=== PATIENT | male | born 1990 | race Two or more races ===

== ENCOUNTER 2025-04-24 11:53 | Emergency (ER) | payer OTHER, SELFPAY ==
[~2025-04-24] VITALS: Ht 180.3 cm; Wt 91.6 kg
--- NOTE | 2025-04-24 14:46 | ED.PDOC ---
HPI Comments 34 y.o male presents to the ED for an evaluation of a laceration to the right thumb. Patient reports about 2 hours ago, was using an electric saw which bounced back to his thumb. Patient presents with thumb wrapped and bleeding controlled, however upon unwrapping, bleeding continued. Laceration is severed to the bone. Reports loss of sensation to the thumb. He denies any medical history or known allergies. Chief Complaint: Laceration Time Seen by MD: 14:27 Reviewed Notes: Nurses Notes, Medications, Allergies Allergies: Coded Allergies: NO KNOWN ALLERGIES (Unverified , 04/24/25) Information Source: Patient Mode of Arrival: Ambulatory Severity: Severe Severity of Laceration: Uncontrolled Bleeding Complexity: Complex Timing: Hours Laceration Location: Digit #1 Mechanism: Other Laceration Length (cm): 4 Skin Type: Avulsion, Jagged, Irregular Depth of Injury: Muscle, Bone, Tendon Tendon Injury: 100% Capillary Refill: < 3 seconds Tender: Severe Discharge: Bloody Associated Signs and Symptoms: Weakness, Numbness, Loss of Function, Bleeding Past Medical History PAST MEDICAL HISTORY: Denies Surgical History: Denies all surgeries Family History Family History: Reviewed,noncontributory to illness Social History Smoker: Non-Smoker Alcohol: Denies ETOH Use Drugs: Denies Drug Use Lives In: Home Constitutional: denies: chills, diaphoresis, fatigue, fever, malaise, sweats, weakness, others EENTM: denies: blurred vision, double vision, ear bleeding, ear discharge, ear drainage, ear pain, ear ringing, eye pain, eye redness, hearing loss, mouth pain, mouth swelling, nasal discharge, nose bleeding, nose congestion, nose pain, photophobia, tearing, throat pain, throat swelling, voice changes, others Respiratory: denies: cough, hemoptysis, orthopnea, SOB at rest, shortness of breath, SOB with excertion, stridor, wheezing, others Cardiovascular: denies: chest pain, dizzy spells, diaphoresis, Dyspnea on exertion, edema, irregular heart beat, left arm pain, lightheadedness, palpitations, PND, syncope, others Gastrointestinal: denies: abdomen distended, abdominal pain, blood streaked bowels, constipated, diarrhea, dysphagia, difficulty swallowing, hematemesis, melena, nausea, poor appetite, poor fluid intake, rectal bleeding, rectal pain, vomiting, others Genitourinary: denies: burning, dysuria, flank pain, frequency, hematuria, incontinence, penile discharge, penile sore, pain, testicle pain, testicle swelling, urgency, others Neurological: denies: dizziness, fainting, headache, left sided numbness, left sided weakness, numbness, paresthesia, pre-existing deficit, right sided numbness, right sided weakness, seizure, speech problems, tingling, tremors, weakness, others Musculoskeletal: denies: back pain, gout, joint pain, joint swelling, muscle pain, muscle stiffness, neck pain, others Integumetry: reports: laceration; denies: bruises, change in color, change in hair/nails, dryness, lesions, lumps, rash, wounds, others Allergic/Immunocompromised: denies: Difficulty Healing, Frequent Infections, Hives, Itching, others Hematologic/Lymphatic: denies: anemia, blood clots, easy bleeding, easy bruising, swollen glands, others Endocrine: denies: excessive hunger, excessive sweating, excessive thirst, excessive urination, flushing, intolerance to cold, intolerance to heat, unexplained weight gain, unexplained weight loss, others Psychiatric: denies: anxiety, bipolar disorder, depression, hopeless, panic disorder, schizophrenia, sleepless, suicidal, others All Other Systems: Reviewed and Negative Physical Exam General Appearance: Mild Distress HEENT: Cornea (L) Neck: Full Range of Motion, Non-Tender, Normal, Normal Inspection Respiratory: Chest Non-Tender, Lungs Clear, No Accessory Muscle Use, No Respiratory Distress, Normal Breath Sounds Cardiovascular: No Edema, No JVD, No Murmur, No Gallop, Normal Peripheral Pulses, Regular Rate/Rhythm Breast Exam: Deferred Gastrointestinal: No Organomegaly, Non Tender, No Pulsatile Mass, Normal Bowel Sounds, Soft Genitalia: Deferred Pelvic: Deferred Rectal: Deferred Extremities: No calf tenderness, Normal capillary refill, Normal inspection, Normal range of motion, Non-tender, No pedal edema Musculoskeletal : Location: Right Extremity Location: Thumb Apperance: Tenderness: Moderate, Other (Injury to the right thumb proximal aspect dorsal side laceration deep involving tendons from a chain saw) Neurologic: Alert, high risk ob II-XII nml as Tested, No Motor Deficits, Normal Affect, Normal Mood, No Sensory Deficits Cerebellar Function: Normal Reflexes: Normal Skin: Lacerations Peripheral Pulses: 1+ carotid (R), 1+ carotid (L) Lymphatic: No Adenopathy Was a procedure done? Was a procedure done?: No Differential diagnosis Generic Laceration: Neurovascular Injury, Tendon Injury, Laceration Differential Diagnosis: N/A X-Ray, Labs, Meds, VS Vital Signs Date Time Temp Pulse Resp B/P (MAP) Pulse Ox O2 Delivery O2 Flow Rate FiO2 04/24/25 11:56 98.1 88 16 140/81 97 98.1 Current Medications Medications (Trade) Dose Ordered Sig/Tanja Route Start Time Stop Time Status Last Admin Sodium Chloride 1,000 ml @ 1,000 mls/hr Q1H ONCE IVB 04/24/25 15:30 04/24/25 16:29 DC 04/24/25 16:48 Ketorolac Tromethamine (Toradol Injection) 30 mg ONCE ONCE IV 04/24/25 15:30 04/24/25 15:31 DC 04/24/25 16:47 Cefazolin Sodium 50 ml @ 100 mls/hr ONCE ONCE IV 04/24/25 15:30 04/24/25 15:59 DC 04/24/25 16:47 Diphtheria/ Tetanus/Acell Pertussis (Boostrix T-Dap) 0.5 ml ONCE ONCE IM 04/24/25 15:30 04/24/25 15:31 DC 04/24/25 16:46 X-Ray, Labs, Meds, VS Comment Patient presented to the [facility] with a a laceration to his right thumb caused by chain saw Laceration is deep involving tendon possible nerves and deep to the periosteum Patient will be referred to high level of care where we sending this patient for further care Time of 1ST Reevaluation: 14:41 Reevaluation 1ST: Unchanged Patient Education/Counseling: Diagnosis, Treatment, Prognosis Family Education/Counseling: No Family Present Departure 1 Departure Time of Disposition: 16:19 Impression: Primary Impression: Deep laceration of thumb Disposition: 02 SHORT TERM HOSPITAL Condition: Stable Critical Care Note Critical Care Time?: No Stability Stability form required: No I personally scribed for MARCUS STOKES MD ([email or web address]) on 04/24/25 at 14:46. Electronically submitted by Lora Orr ([facility]). I personally scribed for MARCUS STOKES MD ([email or web address]) on 04/24/25 at 14:55. Electronically submitted by Lora Orr ([facility]). I personally scribed for MARCUS STOKES MD ([email or web address]) on 04/24/25 at 14:59. Electronically submitted by Lora Orr ([facility]). MARCUS STOKES MD Apr 24, 2025 14:46
--- NOTE | 2025-04-24 15:59 | DVH ---
CLINICAL INDICATION: Deep laceration to thumb TECHNIQUE: 4 radiographic views of the right thumb were obtained. COMPARISON: None FINDINGS/IMPRESSION: Soft tissue deformity at the metacarpal phalangeal joint of the right thumb. Increased soft tissue density there is a soft tissue defect which appears down to the periosteum. No radiopaque foreign bodies
[2025-04-24] MEDS: TETANUS-DIPTH-ACEL PERTUSSIS 0.5ML SYR Tdap IM ONE (16:46)
[2025-04-24] MEDS: ceFAZolin 1GM/50ML 50 ML IV ONE (16:47)
[2025-04-24] MEDS: KETOROLAC TROMETH 30 MG/ML 1ML VIAL IV ONE (16:47)
[2025-04-24] MEDS: SODIUM CHLORIDE 0.9% 1,000 ML IVB ONE (16:48)
[2025-04-24 18:58] VITALS: BP 135/85; PULSE 60; RESP 18; TEMP 98.4; O2SAT 99
== END 2025-04-24 19:00 | disposition short-term general hospital (02) ==
LOC: ER 11:53
DX: S61.011A Laceration without foreign body of right thumb without damage to nail, initial encounter (principal); X58.XXXA Exposure to other specified factors, initial encounter; Y93.89 Activity, other specified; Y92.89 Other specified places as the place of occurrence of the external cause; Y99.8 Other external cause status
CPT/HCPCS: 73130; 90471; 90715; 96361; 96365; 96375; 99285; J0690; J1885; J7030